=== PATIENT | male | born 1960 | race Caucasian/White ===

== ENCOUNTER 2021-08-03 03:35 | Inpatient (IN) | payer OTHER ==
[~2021-08-03] VITALS: Ht 180.3 cm; Wt 92.2 kg
[2021-08-03 03:37] VITALS: BP 130/84
[2021-08-03] MEDS ORDERED: PROAIR HFA8.5 GM INH (03:51)
[2021-08-03] MEDS ORDERED: ACETAMINOPHEN PO (03:51)
[2021-08-03] MEDS ORDERED: DUONEB INH (03:53)
[2021-08-03] MEDS ORDERED: ELIQUIS5 MG PO (03:54)
[2021-08-03] MEDS ORDERED: AMLODIPINE BESY10 MG PO (03:54)
[2021-08-03] MEDS ORDERED: LIPITOR 10 MG10 M1 PO (03:54)
[2021-08-03] MEDS ORDERED: BUDESONIDE0.25 MG/2 (03:57)
[2021-08-03] MEDS ORDERED: DRIZALMA SPRINK60 MG PO (03:57)
[2021-08-03] MEDS ORDERED: AVAPRO75 MG PO (03:58)
[2021-08-03] MEDS ORDERED: NEURONTIN 300M300 M2 PO (03:58)
[2021-08-03] MEDS ORDERED: HYDROCORT-PRAMO30 G1 TOP (03:58)
[2021-08-03] MEDS ORDERED: NIZORAL A-D125 ML (03:59)
[2021-08-03] MEDS ORDERED: ASPERCREME1 EACH TOP (04:00)
[2021-08-03] MEDS ORDERED: ATIVAN1 M1 PO (04:00)
[2021-08-03] MEDS ORDERED: SUPER THERAVIT1 EACH PO (04:01)
[2021-08-03] MEDS ORDERED: OXYBUTYNIN 5 MG5 M2 PO (04:01)
[2021-08-03] MEDS ORDERED: METFORMIN HCL500 M3 PO (04:01)
[2021-08-03] MEDS ORDERED: SEROQUEL 50 MG50 M1 PO (04:02)
[2021-08-03] MEDS ORDERED: FLOMAX0.4 MG PO (04:02)
[2021-08-03] MEDS ORDERED: PROTONIX40 M4 PO (04:02)
[2021-08-03 04:03] LABS: HEMATOCRIT 47.2 % (42.0-52.0); HEMOGLOBIN 15.5 gm/dL (14.0-18.0); MCH 30.6 pg (26.0-34.0); MCHC 32.9 g/dL (28.0-37.0); MCV 92.9 fL (80.0-100.0); MPV 7.4 fl. (7.2-11.1); NUCLEATED RBCS 0 /100WBC; PLATELET COUNT* 166 thou/uL (150-400); RBC 5.08 mil/uL (4.50-6.00); WBC 6.3 thou/uL (4.0-11.0)
[2021-08-03] MEDS ORDERED: VICTOZA0.6 MG/0.1 SUBQ (04:03)
[2021-08-03 04:14] LABS: APTT 33.7 Seconds (25.0-31.3); INR 1.1; PROTIME 11.5 Seconds (9.20-11.50)
[2021-08-03 04:19] LABS: CALCIUM 8.2 mg/dL (8.5-10.1); CREATININE 0.9 mg/dL (0.6-1.3); POTASSIUM 4.2 mmol/L (3.5-5.1)
[2021-08-03 04:35] LABS: ALBUMIN 3.5 g/dL (3.4-5.0); TOTAL BILIRUBIN 0.5 mg/dL (<0.1-1.0); TOTAL PROTEIN 7.5 g/dL (6.4-8.2)
[2021-08-03 04:47] LABS: BE 2.4 mmol/L (-2 to +3); PO2 77.2 mmHg (75.0-100.0); pH 7.312 (7.340-7.450)
[2021-08-03 04:49] LABS: PCO2 61.9 mmHg (35.0-45.0)
[2021-08-03 05:30] LABS: INFLUENZA A ANTIGEN Negative (Negative); INFLUENZA B ANTIGEN Negative (Negative)
[2021-08-03 06:06] LABS: ABSOLUTE EOSINOPHILS 0.8 thou/uL (0.0-0.7); ABSOLUTE LYMPHOCYTES 2.5 thou/uL (0.8-5.3); ABSOLUTE MONOCYTES 0.3 thou/uL (0.0-1.2); ABSOLUTE NEUTROPHILS 2.7 thou/uL (1.6-8.1); PLATELET ESTIMATE ADEQUATE
[2021-08-03 10:00] VITALS: BP 100/43
[2021-08-03 12:00] VITALS: BP 110/54
[2021-08-03 15:25] LABS: BE 4.3 mmol/L (-2 to +3)
[2021-08-03 15:27] LABS: PCO2 60.8 mmHg (35.0-45.0)
[2021-08-03 16:05] VITALS: BP 110/54
[2021-08-03 17:33] VITALS: BP 152/92
[2021-08-03 21:43] VITALS: BP 142/61
[2021-08-04 04:00] VITALS: BP 151/77
[2021-08-04 05:11] LABS: URINE BILIRUBIN NEGATIVE (Negative); URINE BLOOD NEGATIVE (Negative); URINE CLARITY CLEAR; URINE COLOR STRAW; URINE GLUCOSE-RANDOM NEGATIVE (Negative); URINE KETONES 1+ (Negative); URINE LEUKOCYTES-REFLEX NEGATIVE (Negative); URINE NITRITE-REFLEX NEGATIVE (Negative); URINE PROTEIN NEGATIVE (Negative); URINE SPECIFIC GRAVITY 1.015 (1.005-1.030); URINE UROBILINOGEN 0.2 E.U./dl (0.2-1.0)
[2021-08-04 05:25] LABS: BE 0.7 mmol/L (-2 to +3); PO2 70.6 mmHg (75.0-100.0); pH 7.344 (7.340-7.450)
[2021-08-04 05:27] LABS: PCO2 51.5 mmHg (35.0-45.0)
[2021-08-04 08:47] VITALS: BP 163/89
--- NOTE | 2021-08-04 09:14 | EKG ---
[place] [address] ELECTROCARDIOGRAM REPORT Name: RICH LE SR Room: [address] ADM IN .R.#: [id number] Admission: 08/03/21 Attend Phys: Raya Mckinney Discharge: Date of : 62 Date of Service: 08/03/21 0346 Report #: [id number] THIS REPORT FOR: //name// [facility] ED Test Date: 2021-08-03 Test Time: 03:46:50 Pat Name: RICH LE Department: Room: [address] Gender: M Chemical Applicator: : 1960 Requested By: Amado Werner Order Number: [id number] MD: Ricardo Hamilton Measurements Intervals Adamant Rate: 89 P: [place]: QRS: 66 QRSD: 97 T: 78 QT: 368 QTc: 448 Interpretive Statements Sinus rhythm Possible left atrial enlargement No previous ECG available for comparison Electronically Signed On 08-04-2021 9:14:18 MICROFICHE DUPLICATOR by Ricardo Hamilton [email or web address] <ELECTRONICALLY SIGNED> By: Ricardo Hamilton MD, [facility] 08/04/21 0914 0346 0346 Ricardo Hamilton MD, [facility] /EPI
[2021-08-04 12:12] VITALS: BP 149/88
[2021-08-04 17:29] VITALS: BP 146/78
[2021-08-04 20:35] VITALS: BP 136/69
== END 2021-08-04 22:35 | disposition left against medical advice (07) | DRG 189 ==
LOC: M.ERS 03:35 → M.TBA-ER 06:31 → M.2W 06:31
PROVIDERS: Internal Medicine; Personal Emergency Response Attendant; ADMIT Internal Medicine; ATTEND Internal Medicine
PROC: 5A09357 Assistance with Respiratory Ventilation, Less than 24 Consecutive Hours, Continuous Positive Airway Pressure (ICD-10-PCS; principal; 2021-08-03)
DX: J96.22 Acute and chronic respiratory failure with hypercapnia (principal); C34.90 Malignant neoplasm of unspecified part of unspecified bronchus or lung; Z20.822 Contact with and (suspected) exposure to COVID-19; J44.9 Chronic obstructive pulmonary disease, unspecified; J96.21 Acute and chronic respiratory failure with hypoxia; Z53.29 Procedure and treatment not carried out because of patient's decision for other reasons; E78.5 Hyperlipidemia, unspecified; I10 Essential (primary) hypertension; N40.0 Benign prostatic hyperplasia without lower urinary tract symptoms; E11.9 Type 2 diabetes mellitus without complications